=== PATIENT | female | born 1955 | race Caucasian/White ===

== ENCOUNTER 2016-09-20 23:40 | Emergency (ER) | payer OTHER ==
[~2016-09-20] VITALS: Wt 84.5 kg
[~2016-09-20 23:40] MED LIST: BENA20TA48 PO; CYCL-319 PO; HYDR-3498 PO; IBUP-1542 PO; INSU100C SC; LEVEM SC; LORA-52 PO; MTF1000T PO; TRAM50TA2 PO
[2016-09-21] MEDS ORDERED: KETOROLAC 30 MG INJ IM STA (04:28)
[2016-09-21] MEDS ORDERED: HYDROCODONE/APAP (5/325) TAB PO ONE (04:30)
--- NOTE | 2016-09-21 05:44 | RADRPT ---
PROCEDURE: LEFT SHOULDER CLINICAL INDICATION: 61-year-old female with left shoulder pain following trauma. TECHNIQUE: Two-views of the left shoulder were obtained. The images reviewed on a PACS workstation . COMPARISON: None. FINDINGS: No evidence of fracture or dislocation is seen. The glenohumeral and acromioclavicular joint spaces appear preserved. Limited views of the clavicle and thorax are unremarkable. IMPRESSION: Unremarkable left shoulder radiographs. .Chava Howard MD, MD Date Time Electronically viewed and signed by .Chava Howard MD, MD on 09/21/2016 05:50 .M/
--- NOTE | 2016-09-21 05:45 | RADRPT ---
PROCEDURE: LEFT ELBOW - 3 VIEWS CLINICAL INDICATION: 61-year-old female with left elbow pain following trauma. TECHNIQUE: AP, lateral and oblique views of the left elbow were obtained. The images were viewed on a PACS workstation. COMPARISON: None. FINDINGS: There is elevation of the anterior fat pad. There is a small posterior fat pad. This is consistent with a joint effusion. There is no definite acute fracture or dislocation. The bone marrow minera lization is within normal limits. IMPRESSION: 1. No definite acute fracture or dislocation. 2. Joint effusion. An occult fracture cannot be excluded. Clinical correlation is necessary. .Chava Howard MD, MD Date Time Electronically viewed and signed by .Chava Howard MD, on 09/21/2016 05:51 .Suni/
[2016-09-21] MEDS ORDERED: HYDR-906 PO (05:50)
[2016-09-21] MEDS ORDERED: IBUP800T25 PO (05:50)
--- NOTE | 2016-09-22 20:16 | ERD ---
ER Documentation Chief Complaint Date/Time DATE: 09/22/16 TIME: 20:05 Chief Complaint PT TRIPPED AND FELL ON HER LEFT ARM HPI This is a 61 year old female who presents to ER for arm pain after fall earlier today. Patient was walking and tripped and fell landing with her left arm extended. She is having left shoulder and left elbow pain. Limited mobility including pain with extension and flexion of elbow and shoulder. Patient denies hitting her head. No loss of consciousness. Denies hand or wrist pain. Denies leg pain. No loss of sensation. Denies numbness or tinging. No chest pain, shortness of breath or difficulty breathing. ROS All systems reviewed and are negative except as per history of present illness. Medications Home Meds Active Scripts Hydrocodone/Acetaminophen ([place] 5-325 Tablet) 1 Each Tablet, 1 TAB PO Q6H Y for PAIN, #7 TAB Prov:LINA YU NP 09/21/16 Ibuprofen* (Motrin*) 800 Mg Tab, 800 MG PO Q6, #20 TAB Prov:LINA YU NP 09/21/16 Cyclobenzaprine Hcl* (Cyclobenzaprine Hcl*) 10 Mg Tablet, 10 MG PO TID, #15 TAB Prov:DENIZ KLEIN NP 04/06/16 Ibuprofen* (Motrin*) 600 Mg Tab, 600 MG PO Q6H Y for PAIN AND OR ELEVATED TEMP, #30 TAB Prov:DENIZ KLEIN NP 04/06/16 Hydrocodone Bit-Acetaminophen* ([place]*) 5-325 Mg Tab, 1 TAB PO Q6 Y for SEVERE PAIN LEVEL 7-10, #20 TAB Prov:DENIZ KLEIN NP 04/06/16 Tramadol HCl (Tramadol HCl) 50 Mg Tab, 50 MG PO Q4 Y for PAIN, #20 TAB Prov:MERCEDES KRUSE MD 07/03/15 Ibuprofen* (Motrin*) 600 Mg Tab, 600 MG PO Q6, #20 TAB Prov:MERCEDES KRUSE MD 07/03/15 Reported Medications Insulin Detemir* (Levemir*) 100 U/Ml Vial, 15 UNIT SC BID, VIAL 01/08/15 Insulin Lispro (Humalog) 100 U/Ml Cartridge, 18 UNITS SC BID, EA 01/08/15 Benazepril Hcl* (Benazepril Hcl*) 20 Mg Tablet, 20 MG PO DAILY, TAB 01/08/15 Loratadine (Alavert) 10 Mg Tablet, PO DAILY 04/25/11 Metformin* (Glucophage*) 1,000 Mg Tablet, 1000 MG PO BID 04/25/11 Allergies Allergies: Coded Allergies: No Known Drug Allergies (Verified Allergy, Unknown, 07/03/15) PMhx/Soc History of Surgery: Yes (;Cholecystectomy) Anesthesia Reaction: No Hx Neurological Disorder: No Hx Respiratory Disorders: No Hx Cardiac Disorders: Yes (HTN) Hx Psychiatric Problems: No Hx Miscellaneous Medical Probl: Yes (DM,Dyslipidemia) Hx Alcohol Use: No Hx Substance Use: No Hx Tobacco Use: No Physical Exam Vitals Vital Signs Date Time Temp Pulse Resp B/P Pulse Ox O2 Delivery O2 Flow Rate FiO2 09/21/16 00:03 98.2 88 20 120/71 98 Physical Exam Const: alert, no acute distress Head: Atraumatic Eyes: Normal Conjunctiva ENT: Normal External Ears, Nose and Mouth. Neck: Full range of motion..~ No meningismus. Resp: Clear to auscultation bilaterally Cardio: Regular rate and rhythm, no murmurs Abd: Soft, non tender, non distended. Normal bowel sounds Skin: No petechiae or rashes Back: No midline or flank tenderness Ext: Limited mobility to left shoulder and left elbow. Pain with extension and flexion of left shoulder and left elbow. No obvious deformity. No laceration or ecchymosis. No swelling or erythema. Neur: Awake and alert Psych: Normal Mood and Affect Results 24 hrs Current Medications Medications (Trade) Dose Ordered Sig/Darrell Route PRN Reason Start Time Stop Time Status Last Admin Dose Admin Ketorolac Tromethamine (Toradol) 30 mg ONCE STAT IM 09/21/16 04:28 09/21/16 04:30 DC 09/21/16 04:41 Acetaminophen/ Hydrocodone Bitart ([place] (5/325)) 1 tab ONCE ONCE PO 09/21/16 04:30 09/21/16 04:31 DC 09/21/16 04:42 Procedures/MDM ED course Patient was kept comfortable throughout ED visit. Patient kept informed of all test results. Imaging PROCEDURE: LEFT ELBOW - 3 VIEWS CLINICAL INDICATION: 61-year-old female with left elbow pain following trauma. TECHNIQUE: AP, lateral and oblique views of the left elbow were obtained. The images were viewed on a PACS workstation. COMPARISON: None. FINDINGS: There is elevation of the anterior fat pad. There is a small posterior fat pad. This is consistent with a joint effusion. There is no definite acute fracture or dislocation. The bone marrow mineralization is within normal limits. IMPRESSION: 1. No definite acute fracture or dislocation. 2. Joint effusion. An occult fracture cannot be excluded. Clinical correlation is necessary. PROCEDURE: LEFT SHOULDER CLINICAL INDICATION: 61-year-old female with left shoulder pain following trauma. TECHNIQUE: Two-views of the left shoulder were obtained. The images reviewed on a PACS workstation. COMPARISON: None. FINDINGS: No evidence of fracture or dislocation is seen. The glenohumeral and acromioclavicular joint spaces appear preserved. Limited views of the clavicle and thorax are unremarkable. IMPRESSION: Unremarkable left shoulder radiographs. MDM: 61 year old female presents to ER with pain to left shoulder and left elbow after ground level fall that occurred earlier today after patient tripped and fell while walking. Patient given Toradol IM and [place] while in the ED. Patient states pain has improved greatly. X-ray left elbow reviewed by radiologist as no definite acute fracture or dislocation. Joint effusion. An occult fracture cannot be excluded. X-ray left shoulder reviewed by radiologist as unremarkable. Patient comfortable throughout ED visit. Mobility improved after pain management. Neurovascularly intact. Vital signs remain stable. No swelling or obvious deformity. Low suspicion for acute dislocation, acute fracture or compartment syndrome. Patient is appropriate for outpatient management and will be discharged with prescription for Ibuprofen and [place]. Instructed patient to follow up with PCP in the next 2-3 days for reassessment and additional management. Return to ED for any worsening pain, swelling, numbness, tingling, loss of sensation or any new or worsening symptoms. Patient verbalizes understanding. All questions answered at discharge. Departure Diagnosis: Primary Impression: Fall with no significant injury Encounter type: initial encounter Qualified Code: W19.XXXA - Fall with no significant injury, initial encounter Condition: Stable Patient Instructions: Fall, Mechanical Referrals: PATEL COYLE (PCP) Additional Instructions: Call your primary care doctor TOMORROW for an appointment during the next 2-3 days.See the doctor sooner or return here if your condition worsens before your appointment time. Return to ED for any high fever, chest pain, difficulty breathing, shortness breath, wheezing, vomiting, diarrhea, abdominal pain or any new or worsening symptoms. LINA YU NP Sep 22, 2016 20:15
== END 2016-09-21 06:00 | disposition home or self-care (01) ==
LOC: FTE 23:40
DX: S69.92XA Unspecified injury of left wrist, hand and finger(s), initial encounter (principal); I10 Essential (primary) hypertension; E11.9 Type 2 diabetes mellitus without complications; W01.0XXA Fall on same level from slipping, tripping and stumbling without subsequent striking against object, initial encounter; Y92.9 Unspecified place or not applicable; Z79.4 Long term (current) use of insulin; Z79.84 Long term (current) use of oral hypoglycemic drugs
CPT/HCPCS: 73030; 73080; 96372; J1885; Z7502; Z7610

== ENCOUNTER 2017-05-21 07:17 | Emergency (ER) | payer OTHER ==
[~2017-05-21] VITALS: Ht 152.4 cm; Wt 87.0 kg
[~2017-05-21 07:17] MED LIST changes: +HYDR-906 PO; +IBUP800T25 PO
[2017-05-21 07:18] VITALS: Ht 152.4 cm; Wt 87.0 kg
[2017-05-21] MEDS ORDERED: IBUP-1542 PO (07:37)
[2017-05-21] MEDS ORDERED: FLUT9.9S NASAL (07:37)
[2017-05-21] MEDS ORDERED: BENZ100C70 PO (07:37)
[2017-05-21] MEDS ORDERED: AZIT250T94 PO (07:37)
--- NOTE | 2017-05-21 07:42 | ERD ---
ER Documentation Chief Complaint Date/Time DATE: 05/21/17 TIME: 07:40 Chief Complaint dry cough x 5 days, sorethroat, no fever, numbness right hand x 5 days HPI 61-year-old female presents with a cough and congestion for the last 5 days. She denies fevers. She also complains of neck pain numbness and pain radiating to her right hand. She has a trauma. Her neck and arm symptoms have been for the last year. She denies any chest pain, vomiting, abdominal pain. ROS All systems reviewed and are negative except as per history of present illness. Medications Home Meds Active Scripts Fluticasone Propionate (Flonase Allergy Relief) 9.9 Ml [place].susp, 1 SPRAY NASAL BID, #1 BOTTLE TO EACH NOSTRIL Prov:MERCEDES KRUSE MD 05/21/17 Ibuprofen* (Motrin*) 600 Mg Tab, 600 MG PO Q6, #20 TAB Prov:MERCEDES KRUSE MD 05/21/17 Azithromycin* (Zithromax*) 250 Mg Tablet, 250 MG PO .ZPACK DIRECTED, #6 TAB TAKE 500 MG (2 TABS) THE FIRST DAY THEN 250 MG (1 TAB) DAYS 2-5 Prov:MERCEDES KRUSE MD 05/21/17 Benzonatate* (Tessalon Perle*) 100 Mg Capsule, 100 MG PO Q8H Y for COUGH, #15 CAP Prov:MERCEDES KRUSE MD 05/21/17 Hydrocodone/Acetaminophen ([place] 5-325 Tablet) 1 Each Tablet, 1 TAB PO Q6H Y for PAIN, #7 TAB Prov:LINA YU NP 09/21/16 Ibuprofen* (Motrin*) 800 Mg Tab, 800 MG PO Q6, #20 TAB Prov:LINA YU NP 09/21/16 Cyclobenzaprine Hcl* (Cyclobenzaprine Hcl*) 10 Mg Tablet, 10 MG PO TID, #15 TAB Prov:DENIZ KLEIN NP 04/06/16 Ibuprofen* (Motrin*) 600 Mg Tab, 600 MG PO Q6H Y for PAIN AND OR ELEVATED TEMP, #30 TAB Prov:DENIZ KLEIN NP 04/06/16 Hydrocodone Bit-Acetaminophen* ([place]*) 5-325 Mg Tab, 1 TAB PO Q6 Y for SEVERE PAIN LEVEL 7-10, #20 TAB Prov:DENIZ KLEIN NP 04/06/16 Tramadol HCl (Tramadol HCl) 50 Mg Tab, 50 MG PO Q4 Y for PAIN, #20 TAB Prov:MERCEDES KRUSE MD 07/03/15 Ibuprofen* (Motrin*) 600 Mg Tab, 600 MG PO Q6, #20 TAB Prov:MERCEDES KRUSE MD 07/03/15 Reported Medications Insulin Detemir* (Levemir*) 100 U/Ml Vial, 15 UNIT SC BID, VIAL 01/08/15 Insulin Lispro (Humalog) 100 U/Ml Cartridge, 18 UNITS SC BID, EA 01/08/15 Benazepril Hcl* (Benazepril Hcl*) 20 Mg Tablet, 20 MG PO DAILY, TAB 01/08/15 Loratadine (Alavert) 10 Mg Tablet, PO DAILY 04/25/11 Metformin* (Glucophage*) 1,000 Mg Tablet, 1000 MG PO BID 04/25/11 Allergies Allergies: Coded Allergies: No Known Drug Allergies (Verified Allergy, Unknown, 05/21/17) PMhx/Soc History of Surgery: Yes (;Cholecystectomy) Anesthesia Reaction: No Hx Neurological Disorder: No Hx Respiratory Disorders: No Hx Cardiac Disorders: Yes (HTN) Hx Psychiatric Problems: No Hx Miscellaneous Medical Probl: Yes (DM,Dyslipidemia) Hx Alcohol Use: No Hx Substance Use: No Hx Tobacco Use: No Physical Exam Vitals Vital Signs Date Time Temp Pulse Resp B/P Pulse Ox O2 Delivery O2 Flow Rate FiO2 05/21/17 07:18 98.0 83 20 149/77 98 Physical Exam Const: [], [id number] Head: Atraumatic Eyes: Normal Conjunctiva ENT: Normal External Ears, Nose and Mouth.TMs normal. 3+ nasal congestion. Mild maxillary tenderness. Postnasal drip Neck: Full range of motion..~ No meningismus. Resp: Clear to auscultation bilaterally. No rales or wheezing appreciated. Cardio: Regular rate and rhythm, no murmurs Abd: Soft, non tender, non distended. Normal bowel sounds Skin: No petechiae or rashes Back: No midline or flank tenderness Ext: No cyanosis, or edema Neur: Awake and alert Psych: Normal Mood and Affect Procedures/MDM Patient presents with URI symptoms and signs of possible sinusitis. She will treated with Zithromax, Tessalon and Flonase given the duration. There is no evidence of hypoxemia or respiratory distress or signs of pneumonia, chest pain. Neck and arm pain appear to be radicular pain. She is advised to follow- up with primary care doctor for treatment for this. Radiologic studies were deferred given absence of trauma and chronic nature of symptoms. The patient was stable with no new complaints during the ER course. Clinically, there is no current evidence to suggest meningitis, sepsis, acute abdomen, pneumonia, acute coronary syndrome, pulmonary embolism, or any other emergent condition appearing to require further evaluation or hospitalization. The patient should certainly return for any new or worsening symptoms per the aftercare instructions. They should otherwise follow-up with her primary care doctor for reevaluation this week. Departure Diagnosis: Primary Impression: Cough Condition: Stable Patient Instructions: Sinusitis, Abx Tx Additional Instructions: Examines normal hoy. Cheque otro vez con martinez doctor primario en el proximo salmon or regresa para mas o nueva simptomas. MERCEDES KRUSE MD May 21, 2017 07:42
== END 2017-05-21 08:05 | disposition home or self-care (01) ==
LOC: FTE 07:17
DX: R05 Cough (principal); I10 Essential (primary) hypertension; E11.9 Type 2 diabetes mellitus without complications; Z79.4 Long term (current) use of insulin; Z79.84 Long term (current) use of oral hypoglycemic drugs
CPT/HCPCS: 99284